=== PATIENT | male | born 1955 | race Caucasian/White ===

== ENCOUNTER 2018-02-24 13:03 | Emergency (ER) | payer OTHER ==
[~2018-02-24] VITALS: Ht 182.9 cm; Wt 86.2 kg
[2018-02-24] MEDS ORDERED: SIMV5 PO (13:30)
[2018-02-24] MEDS ORDERED: BENADRYL25 MG PO (13:50)
[2018-02-24] MEDS ORDERED: EPIPEN 2-P0.3 MG/0.3 IM (13:50)
[2018-02-24] MEDS ORDERED: PRED20 PO (13:50)
== END 2018-02-24 17:02 | disposition home or self-care (01) ==
LOC: ER 13:03
DX: T63.441A Toxic effect of venom of bees, accidental (unintentional), initial encounter (principal); Z79.899 Other long term (current) drug therapy
CPT/HCPCS: 71045; 93005; 93010; 96361; 96372; 96374; 96375; 99284; J0171; J1200; J2405; J2930; J3490; J7030

== ENCOUNTER 2022-11-19 16:36 | Emergency (ER) | payer MEDICARE ==
[~2022-11-19] VITALS: Ht 170.2 cm; Wt 90.7 kg
[~2022-11-19 16:36] MED LIST: BENADRYL25 MG PO; EPIPEN 2-P0.3 MG/0.3 IM; PRED20 PO; SIMV5 PO
[2022-11-19] MEDS ORDERED: OCUFLOX510 LEFTEAR (20:52)
== END 2022-11-19 20:56 | disposition home or self-care (01) ==
LOC: ER 16:36
DX: H60.92 Unspecified otitis externa, left ear (principal); Z79.899 Other long term (current) drug therapy
CPT/HCPCS: A9270; J1885